=== PATIENT | female | born 2005 | race Caucasian/White ===

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

== ENCOUNTER 2024-12-03 16:36 | Emergency (ER) | payer OTHER, SELFPAY ==
[2024-12-03 17:01] VITALS: BP 137/80; PULSE 93; RESP 18; TEMP 36.3; O2SAT 98; BMI 28.9
[2024-12-03 18:24] VITALS: BP 114/74; PULSE 84; RESP 14; TEMP 36.9; O2SAT 98
[2024-12-03 18:42] LABS: MANUAL DIFF FLAG NO
[2024-12-03 18:43] LABS: Hematocrit 40.4 % (37.0-47.0); Hemoglobin 13.6 g/dl (12.0-16.0); Imm Gran Abs Auto 0.03 X10*3/uL (0.00-0.03); Imm Gran Pct Auto 0.3 % (0.0-0.4); Lymphocytes Absolute Auto 2.3 X10*3/uL (1.2-4.9); Mean Corpuscular HGB Conc 33.7 g/dl (31.0-35.0); Mean Corpuscular Hemoglobin 28.1 pg (27.0-33.0); Mean Corpuscular Volume 83.5 fL (80.0-98.0); NRBC Abs Auto 0.000 X10*3/uL (0.0-0.012); NRBC Pct Auto 0.0 /100WBC (0.0-0.2); Platelet Count 254 X10*3/uL (160-400); Red Blood Count 4.84 X10*6/uL (4.20-5.50); White Blood Count 9.0 X10*3/uL (4.8-10.8)
[2024-12-03 19:06] LABS: Alanine Aminotransferase 9 U/L (0-31); Albumin Level 4.2 g/dL (3.5-5.0); Alkaline Phosphatase 76 U/L (39-117); Anion Gap 11 (12-20); Aspartate Amino Transferase 19 U/L (5-31); Blood Urea Nitrogen 11 mg/dL (9-16); Calcium 9.0 mg/dL (8.4-10.2); Carbon Dioxide 27 mmol/L (22-29); Chloride 108 mmol/L (96-108); Creatinine Clr Calc Pharmacy 119.3; Estimated Glomerular Filt Rate > 60; Lipase 19 U/L (8-78); Magnesium 2.1 mg/dL (1.6-2.6); Potassium 4.1 mmol/L (3.3-5.1); Sodium 142 mmol/L (135-145); Total Protein 7.6 g/dL (6.5-8.0)
[2024-12-03 19:35] LABS: D Dimer High Sensitivity < 150 NG/ML
--- NOTE | 2024-12-03 19:45 | ED_ITS ---
HPI - General Adult General Chief complaint: Abdominal Pain Stated complaint: left side abd discomfort (x few weeks) Time Seen by Provider: 12/03/24 18:35 Source: patient Mode of arrival: ambulatory Limitations: no limitations History of Present Illness ED Provider: MYLES Hawley HPI narrative: This is a 19-year-old female with no reported medical history who presents to the emergency department with complaints of left upper quadrant abdominal pain ongoing for the past3- 4 weeks. Reports it is stabbing in nature when it occurs. She reports it is intermittent in nature she is comfortable right now and does not feel like she needs anything for pain. She denies associated nausea, vomiting, fevers, chills, recent illness, changes in urinary or bowel habits, chest pain, shortness of breath. Denies trauma to the area. No concerns for STDs. No concerns for Related Data Previous Rx's ?Medication ?Instructions ?Recorded erythromycin 5 mg/gram (0.5 %) eye 0.5 inch ophthalmic (eye) QID 7 09/16/20 ointment days #3.5 grams Allergies Allergy/AdvReac Type Severity Reaction Status Date / Time No Known Allergies Allergy Verified 12/03/24 17:04 Review of Systems 2 Review of Systems: Yes all other systems are reviewed and are negative PMFSH Past Medical History Attestation statement: The following information was validated with the patient. Source: old records reviewed and nursing notes reviewed Medical History Childhood asthma Social History Social History Smoked in Last 30 Days: No Substance Use Type: Marijuana Substance Use Frequency: Occasionally Advance Directives: No Advance Directives Information Provided: No Do you have a plan to hurt others: No Plan Patient : No Physical Exam ED Exam Exam: Appearance: Alert.? Oriented X3.? No acute distress.? Head: Normocephalic, atraumatic, no step-offs or deformities Eyes: Pupils equal, round and reactive to light.? ENT: Pharynx normal.? Neck: Normal inspection.? Neck supple.? CVS: Normal heart rate and rhythm.? Pulses normal.? Respiratory: No respiratory distress.? Breath sounds normal.? Abdomen: Soft and + ttp to LUQ very mild and only w/ deep palpation.? Skin: Skin warm and dry.? Normal skin color.? Normal skin turgor.? Extremities: No lower extremity edema.? No calf ttp. 5/5 strength to bilateral upper and lower extremities Neuro: Oriented X 3.? No motor deficit.? No sensory deficit. CN 2-12 intact Vital Signs: Vital Signs - 24 hr 12/03/24 17:01 12/03/24 18:24 12/03/24 20:46 Temperature 97.3 F 98.4 F 98.0 F Pulse Rate 93 84 80 Respiratory Rate 18 14 16 Blood Pressure 137/80 114/74 110/65 Pulse Oximetry 98 98 98 Oxygen Delivery Method Room Air Room Air Room Air BMI result Body Mass Index 28.9 vss Course Reevaluation(s) Reevaluation #1: CBC unremarkable. Chemistry without any acute findings needing intervention. Lipase normal. Beta hCG normal. D-dimer negative unlikely PE. Time: 19:51 Reevaluation #2: Patient's EKG normal sinus rhythm and nondiagnostic for chief complaint. Time: 20:05 Reevaluation #3: Patient feeling okay, she will be discharged home with PCP follow-up she does not have a PCP so will give her a list of PCPs in the area. UA without infection. Educated patient on diagnosis and treatment plan, answered all question, patient verbalizes understanding. At this time patient will be discharged home, advised to return with new or worsening symptoms. Educated on worrisome signs and symptoms and when to return. At this time I feel comfortable discharge home. Time: 21:08 Medical Decision Making Medical Decision Making [facility] Narrative: 1949 19-year-old female presents with 3-4 weeks of left upper quadrant pain. No associated nausea, vomiting, diarrhea or changes in urinary habits Physical exam left upper quadrant tenderness to palpation on exam. History and physical exam concerning for possible musculoskeletal pain. I do not suspect acute appendicitis, cholecystitis, pancreatitis, splenic infarct, diverticulitis or acute abdomen. Will rule out although patient states she does not have a concerned for this. No urinary symptoms unlikely UTI or pyelonephritis. History and physical exam not consistent with ectopic or torsion. I do not suspect pulmonary embolism or atypical presentation of ACS Plan labs, urine, D-dimer Differential Diagnosis Differential Diagnoses: The differential diagnosis associated with the presentation includes (History and physical exam concerning for possible musculoskeletal pain. I do not suspect acute appendicitis, cholecystitis, pancreatitis, splenic infarct, diverticulitis or acute abdomen. Will rule out although patient states she does not have a concerned for this. No urinary symptoms u) Admission/Observation Consideration of admission/observation: Escalation of care including admission/observation considered Lab Data MDM Lab Attestation statement: I reviewed the patient's lab results. 12/03/24 18:33 12/03/24 18:33 Labs: Lab Results 12/03/24 12/03/24 12/03/24 Range/Units 18:33 19:21 20:45 WBC 9.0 (4.8-10.8) X10*3/uL RBC 4.84 (4.20-5.50) X10*6/uL Hgb 13.6 (12.0-16.0) g/dl Hct 40.4 (37.0-47.0) % MCV 83.5 (80.0-98.0) fL MCH 28.1 (27.0-33.0) pg MCHC 33.7 (31.0-35.0) g/dl RDW 12.3 (11.0-16.0) % Plt Count 254 (160-400) X10*3/uL MPV 10.5 (9.4-12.3) fL Immature Gran % (Auto) 0.3 (0.0-0.4) % Neut % (Auto) 66.1 (45-73) % Lymph % (Auto) 25.2 (20-40) % [place] % (Auto) 5.8 (2-11) % Eos % (Auto) 2.0 (0-4) % Baso % (Auto) 0.6 (0-2) % Lymph # (Auto) 2.3 (1.2-4.9) X10*3/uL [place] # (Auto) 0.5 (0.1-1.2) X10*3/uL Eos # (Auto) 0.2 (0.0-0.4) X10*3/uL Baso # (Auto) 0.1 (0.0-0.2) X10*3/uL Abs Immat Gran (auto) 0.03 (0.00-0.03) X10*3/uL Absolute Neuts (auto) 6.0 (2.0-8.3) x10*3/uL Absolute Nucleated RBC 0.000 (0.0-0.012) X10*3/uL Nucleated RBC % (auto) 0.0 (0.0-0.2) /100WBC D-Dimer High Sensitivty < 150 NG/ML Sodium 142 (135-145) mmol/L Potassium 4.1 (3.3-5.1) mmol/L Chloride 108 (96-108) mmol/L Carbon Dioxide 27 (22-29) mmol/L Anion Gap 11 L (12-20) BUN 11 (9-16) mg/dL Creatinine 0.61 (0.5-1.4) mg/dL Estim Creat Clear Calc 119.3 Estimated GFR > 60 Random Glucose 96 (60-115) mg/dL Calcium 9.0 (8.4-10.2) mg/dL Magnesium 2.1 (1.6-2.6) mg/dL Total Bilirubin 0.7 (0.0-1.0) mg/dL AST 19 (5-31) U/L ALT 9 (0-31) U/L Alkaline Phosphatase 76 (39-117) U/L Troponin I High Sens < 2.7 (<3.5-17.0) ng/L Total Protein 7.6 (6.5-8.0) g/dL Albumin 4.2 (3.5-5.0) g/dL Lipase 19 (8-78) U/L Beta HCG, Quant < 2 mIU/mL Urine Color Yellow Urine Appearance Clear Urine pH >= 9.0 (5.0-9.0) Ur Specific [place] 1.020 (1.005-1.025) Urine Protein Trace (Neg-Trace) mg/dL Urine Glucose (UA) Negative (Negative) mg/dL Urine Ketones Negative (Negative) mg/dL Urine Blood Negative (Negative) Urine Nitrite Negative (Negative) Ur Leukocyte Esterase Trace H (Negative) Urine RBC 0-2 (0-2) /HPF Urine WBC 0-5 (0-5) /HPF Ur Squamous Epith Cells 6-10 (0-2) /HPF Urine Bacteria Trace (None Seen) Hyaline Casts 0-2 (0-2) /LPF Independent Interpretation I performed an independent interpretation of an: EKG (Normal sinus rhythm nondiagnostic for chief complaint nonischemic) Tests considered The following testing was considered but not selected: Patient's pain has been present for 3-4 weeks laboratory studies are unremarkable she has mild tenderness to the left upper quadrant, no true indication for CAT scan at this time. She is hemodynamically stable and given follow up with her PCP tomorrow for further evaluation and treatment of left upper quadrant pain that has now been present for 3-4 weeks Chronic Conditions Denies Critical Care Time Critical Care Time Critical Care Time: No Discharge Plan Discharge Clinical Impression: Abdominal pain Patient Disposition: Home, Self-Care Instructions: Abdominal Pain (ED) Additional Instructions: Take your medications as prescribed. If you were prescribed antibiotics today, it is important that you take your medication to their entirety, do not skip any doses, do not finish them early. Follow-up with your primary care provider this week. Return to the emergency department with new or worsening symptoms. Such as fevers, chills, chest pain, shortness of breath, nausea, vomiting, dizziness, headache, vision changes, lethargy In case of emergency call 911 Prescriptions: No Action erythromycin 5 mg/gram (0.5 %) ointment 0.5 inch ophthalmic (eye) QID 7 Days Qty: 3.5 0RF Referrals: Physician,Unknown J [Primary Care Provider, Medical] Print Language: Ecuadorean
--- NOTE | 2024-12-03 19:50 | ECG_ITS ---
Test Reason : LEFT UPPER QUADRANT PAIN Blood Pressure : */* mmHG Vent. Rate : 87 BPM Atrial Rate : 87 BPM P-R Int : 162 ms QRS Dur : 78 ms QT Int : 346 ms P-R-T Axes : 44 50 56 degrees QTcB Int : 416 ms Normal sinus rhythm Normal ECG No previous ECGs available Referred By: Kade Hawley Electronically Signed By: CORBIN PEARSON MD
[2024-12-03 20:33] LABS: Troponin-I High Sensitivity < 2.7 ng/L (<3.5-17.0)
[2024-12-03 20:46] VITALS: BP 110/65; PULSE 80; RESP 16; TEMP 36.7; O2SAT 98
[2024-12-03 20:54] LABS: Appearance Urine Clear; Glucose Urine UA Negative (Negative); PH >= 9.0 (5.0-9.0); Specific Gravity - Urine 1.020 (1.005-1.025); UMIC TRIGGER UACC YES
[2024-12-03 21:36] VITALS: BP 105/75; PULSE 75; RESP 16; TEMP 36.7; O2SAT 98
== END 2024-12-03 21:40 | disposition home or self-care (01) ==
PROVIDERS: Physician Assistant; Emergency Provider Emergency Medicine
DX: R10.12 Left upper quadrant pain (principal)
CPT/HCPCS: 36415; 80053; 81001; 83690; 83735; 84484; 84702; 85025; 85379; 93005; 99283; 99285

== ENCOUNTER → 2024-12-03 19:50 | Outpatient (BNV) | payer OTHER, SELFPAY | PROVIDERS: Emergency Provider Emergency Medicine; Visit Provider Internal Medicine Cardiovascular Disease | DX: R10.12 Left upper quadrant pain (principal) | CPT/HCPCS: 93010 ==

== ENCOUNTER 2025-02-15 15:56 | Outpatient (AMB) | payer OTHER, SELFPAY ==
--- NOTE | 2025-02-15 16:02 | MHC.PC.OV ---
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: No Accompanied by: Self / Same As Patient Is last menstrual period known: Yes Patient : No Allergies No Known Allergies Allergy (Verified 02/15/25 16:02) Medication List - Last Reconciled 02/15/25 by Emiliano Padron MD Tobacco use date assessed: 02/15/25 Dental Screening Dental Screen Date: 02/15/25 Did you have a dental visit in the last 12 months?: Yes Was dental information given to patient?: Patient has dentist HPI HPI Comments History of Present Illness Details History of Present Illness The patient is a 19 year old female presenting for a new patient visit, a physical, and to address concerns of abdominal discomfort and hair loss. The primary concern is abdominal discomfort, which prompted a recent emergency room visit. The sensation initially began on the left side of her stomach some time ago and shifted to the right side a few weeks ago. She describes it not as painful but as a weird, cramping sensation that comes and goes randomly, is not associated with her menstrual cycle, and resolves on its own, particularly with rest. She has not identified any specific triggers, such as food or falls. She reports occasional constipation and notes the discomfort may be worse during these episodes. Blood work and urine tests from the recent ER visit were normal. The patient also reports experiencing significant hair loss for the past year, which occurs diffusely rather than in patches. She previously dyed her hair frequently and stopped a year ago, believing it to be the cause, but the hair loss has not improved. Past medical history is significant for fatty liver, diagnosed in 2021 via an ultrasound at [facility], and anxiety. This is her first visit with an adult primary care physician, having previously been with a research assistant member. Medical History: - Steatosis of liver: Diagnosed in 2021 via ultrasound. - Anxiety: Patient scored 14 on a screening, indicating significant anxiety, particularly related to her health. - Emergency Department Visit: Recently visited the ED for abdominal pain, where blood work and urinalysis were found to be normal. Surgical History: - No prior surgeries. Medications: - The patient denies taking any medications. Family History: - Diabetes: Mother and maternal grandmother. - Denies family history of cancer or heart disease. Diagnostic Results: - Labs: Blood work from a recent emergency department visit was normal. - Tests: Urinalysis from a recent emergency department visit was normal. - Diagnostics: An ultrasound in 2021 diagnosed fatty liver. 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 - Housing: Lives with her mother in a house. - Tobacco Use: Denies ever using tobacco, e-cigarettes, or vaping. - Environmental Exposures: Reports some secondhand tobacco smoke exposure. - Alcohol Use: Denies any alcohol consumption. - Substance Use: Reports occasional marijuana use. 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 1. Little interest or pleasure in doing things: not at all 2. Feeling down, depressed, or hopeless: not at all 3. Trouble falling or staying asleep, or sleeping too much: not at all 4. Feeling tired or having little energy: not at all 5. Poor appetite or overeating: not at all 6. Feeling bad about yourself - or that you are a failure or have let yourself or your family down: not at all 7. Trouble concentrating on things, such as reading the newspaper or watching television: not at all 8. Moving or speaking so slowly that other people could have noticed. Or the opposite - being so fidgety or restless that you have been moving around a lot more than usual: not at all 9. Thoughts that you would be better off or of hurting yourself in some way: not at all Total score: 0 Depression Screening Interpretation: Negative Depression Screening Done: Yes 86012 - PHQ-9 Billing: Yes Source: Developed by Drs. Chavo Evans, Goyo Guevara and colleagues, with an educational phillip from [employer]. Thrive Questionnaire Date Thrive assessed: 02/15/25 I am a: Patient What is your living situation today?: I have a steady place to live Within the past 12 months, did the food you bought not last and you didn't have the money to get more?: Never true Within the past 12 months, did you worry whether your food would run out before you got money to buy more?: Never true Do you have trouble paying for medicines?: No Do you have trouble getting transportation to medical appointments?: No Do you have trouble paying your heating and electricity bill?: No Do you have trouble taking care of your child, family member or friend?: No Do you have trouble with day-to-day activities such as bathing, preparing meals, shopping, managing finances, etc.?: No Are you currently unemployed and looking for a job?: No Are you interested in more education?: No THRIVE Score: 0 AUDIT C Alcohol Use Questionnaire (AUDIT-C) 1. How often do you have a drink containing alcohol?: Never Total Score: 0 Score Reviewed/Action Taken: Yes ZEESHAN-7 AMB Questionnaire ZEESHAN-7 Date ZEESHAN - 7 assessed: 02/15/25 Feeling nervous, anxious, or on edge: 2 = More than half the days Not being able to stop or control worryin = More than half the days Worrying too much about different things: 2 = More than half the days Trouble relaxin = More than half the days Being so restless that it is hard to sit still: 2 = More than half the days Becoming easily annoyed or irritable: 2 = More than half the days Feeling afraid as if something awful might happen: 2 = More than half the days Total ZEESHAN-7 score (0-4 normal; 5-9 mild; 10-14 moderate; 15-21 severe): 14 Source: Developed by Drs. Chavo Evans, Goyo Guevara and colleagues, with an educational phillip from [employer]. ZEESHAN-7 Assessment Billing ZEESHAN-7 Assessment Tool: ZEESHAN-7 Assessment 10338 Review of Systems Narrative - General: Denies significant weight loss. - Gynecologic: Reports last menstrual period started today. - Gastrointestinal: Reports intermittent abdominal cramping and occasional constipation. - Denies bloody stools. - Integumentary: Reports diffuse hair loss for approximately one year. - Denies skin lesions. - Psychiatric: Reports anxiety, particularly focused on her health. - Immune: Denies frequent infections. All systems reviewed & are unremarkable except as reviewed in HPI and above Physical exam (Primary Care) Vital Signs: Last Vital Signs Temp 98.1 F 02/15/25 16:04 Pulse 99 02/15/25 16:04 Resp 16 02/15/25 16:04 BP 138/92 H 02/15/25 16:04 Pulse Ox 99 02/15/25 16:04 BMI result Body Mass Index 31.0 Tobacco/Smoking Status: Tobacco use Status Tobacco use date assessed 02/15/25 02/15/25 16:06 Patient Tobacco Use Status Never used Tobacco 02/15/25 16:06 e-Cigarette/Vaping Use Never Used 02/15/25 16:06 PHQ-9: PHQ-9 Score PHQ-9: Total score 0 02/15/25 16:07 Depression Screening Interpretation: Negative Thrive Assessment: Date of Thrive Assessment Date Thrive assessed 02/15/25 02/15/25 16:07 Narrative Physical Exam General: +Alert and oriented, Well nourished, No acute distress. Eye: Pupils are equal, round and reactive to light, Intact accommodation, Extraocular movements are intact, Normal conjunctiva, Vision unchanged. HENT: Normocephalic, Atraumatic, Tympanic membranes are clear, Normal hearing, Oral mucosa is moist, No pharyngeal erythema, Ear canals patent. Respiratory: Lungs CTA bilaterally, No wheeze, Respirations are non-labored. Cardiovascular: Regular rate, Regular rhythm, S1 auscultated, S2 auscultated, No murmur, Good pulses equal in all extremities, Normal peripheral perfusion, No edema. Gastrointestinal: Soft, Non-tender, Non-distended, Normal bowel sounds, No organomegaly, Occasional constipation. Musculoskeletal: Normal range of motion, Normal strength, No tenderness, No swelling, No deformity, Normal gait. Integumentary: Warm, Dry, [place], Intact, Experiencing hair loss. Neurologic: Alert, Oriented, Normal sensory, Normal motor function, No focal defects, Cranial Nerves II-XII are grossly intact, Normal deep tendon reflexes. Psychiatric: Cooperative, Appropriate mood & affect, Normal judgment, Significant anxiety (scored 14). Coding Level of Care Code New Pt Level 3 (77510) New Pt Prev Care 18-39yr(81927 Diagnoses Generalized abdominal pain R10.84 Abdominal location: generalized Anxiety F41.9 Hair loss L65.9 Annual physical exam Z00.00 Additional Codes ZEESHAN-7 Assessment Billing - ZEESHAN-7 Assessment Tool: ZEESHAN-7 Assessment 32116 ([id number]) PHQ-9 - 13416 - PHQ-9 Billing: Yes ([id number]) Comment [id number] Assessment & Plan Assessment & Plan (1) Abdominal pain: Comment: - The etiology of the patient's intermittent, migrating abdominal cramping is unclear, though it may be related to constipation. - Given the normal physical exam and recent normal labs from the ER, an urgent process is less likely. - Plan includes an abdominal x-ray to assess for stool burden and an abdominal ultrasound to evaluate internal organs. - The patient was instructed to keep a symptom diary to track potential associations. Code(s): R10.9 - Unspecified abdominal pain Category: Medical Qualifiers: Abdominal location: generalized Qualified Code(s): R10.84 - Generalized abdominal pain (2) Anxiety: Comment: - The patient has significant anxiety, as indicated by a screening score of 14, which she identifies as being primarily related to her health. - This may be contributing to her hair loss. - Treatment with medication was discussed, but the patient wished to think about it. - Reassurance was provided regarding her normal lab results. Code(s): F41.9 - Anxiety disorder, unspecified Category: Medical (3) Hair loss: Comment: - The patient reports diffuse hair loss for one year, which has not improved after stopping hair dye. - Stress and anxiety are the most likely contributing factors. - Cacf-kzk-qexurip minoxidil spray was suggested. Code(s): L65.9 - Nonscarring hair loss, unspecified Category: Medical (4) Annual physical exam: Comment: - As this is a new patient physical, screening labs were ordered, including a lipid panel, hepatitis panel, HIV, syphilis, vitamin D, and TSH. - A urinalysis will also be performed. - Follow-up is scheduled in three weeks to review results and reassess symptoms. Code(s): Z00.00 - Encounter for general adult medical examination without abnormal findings Category: Medical Plan: Health Maintenance: - Patient is establishing care with an adult primary care physician for the first time. - Screening labs ordered: lipid panel, hepatitis panel, HIV, syphilis, vitamin D, TSH, and urinalysis. - Counseled on substance use; patient denies alcohol and tobacco use but reports occasional marijuana use. - Patient confirmed she has seen a dentist in the past 12 months. Patient was informed and verbally consented to the use of an ambient scribe for clinic note documentation during this visit. Vital signs reviewed. Comprehensive history, review of systems, and physical exam completed. Medications, allergies, and problem list reviewed and updated. Counseling provided on nutrition, regular exercise, sleep hygiene, and moderation of alcohol use. Discussed age-appropriate screenings (mammogram, colonoscopy, Pap, bone density) and immunizations (flu, COVID, shingles, Tdap). Screened for depression, fall risk, and home safety; no current concerns. Discussed stress management, dental and vision care, and importance of ongoing preventive follow-up. Routine labs ordered for metabolic and lipid screening. Patient educated on healthy lifestyle and agrees with the plan. Plan I discussed with the patient that the cause of her abdominal pain is not clear at this time, but her recent emergency room workup and today's physical exam are reassuring. I explained the plan to get an abdominal x-ray and ultrasound for further evaluation and stressed the importance of keeping a symptom diary to identify potential triggers. We discussed her significant health anxiety and that it is likely a major contributor to her symptoms, including her hair loss. I offered medication for her anxiety, but she preferred to think about it, which I agreed to. I recommended she try [id number]-[id number] minoxidil for her hair. I ordered a panel of screening labs as part of her new patient physical and explained that I would notify her of any abnormal results. I advised her to return to the emergency room for severe pain and to follow up with me in three weeks. Orders: Orders US abdomen complete Today R10.9 - Unspecified abdominal pain Hemoglobin A1c Today Z00.00 - Encounter for general adult medical examination without abnormal findings Hepatitis A,B,C Profile Today Z00.00 - Encounter for general adult medical examination without abnormal findings HIV Ab/Ag Today Z00.00 - Encounter for general adult medical examination without abnormal findings Lipid Panel Today Z00.00 - Encounter for general adult medical examination without abnormal findings Microalbumin, Random (w Creat) Today Z00.00 - Encounter for general adult medical examination without abnormal findings Syphilis Screen Today Z00.00 - Encounter for general adult medical examination without abnormal findings TSH reflex Free T4 Today Z00.00 - Encounter for general adult medical examination without abnormal findings XR abdomen 1V Today R10.9 - Unspecified abdominal pain Vitamin D 25-OH Total Today Z00.00 - Encounter for general adult medical examination without abnormal findings Patient Instructions: - Go to the hospital imaging department today to get an x-ray of your abdomen. - The radiology department will call you to schedule an ultrasound of your abdomen. - Keep a daily diary of your symptoms. - Write down what you ate, if you had a bowel movement, and when the discomfort occurs. - For your hair loss, you can try an vfuw-gyj-lzmensx spray called minoxidil. - We discussed medication for anxiety, please think about if this is something you would be interested in trying. - Schedule a follow-up appointment in three weeks. - If you experience severe pain, please go to the emergency room for evaluation.
[2025-02-15 16:04] VITALS: BP 138/92; PULSE 99; RESP 16; TEMP 36.7; O2SAT 99; BMI 31.0
--- OUTSIDE RECORDS SUMMARY | 2025-02-15 18:42 | XMS_ITS | Encounter Summary ---
Author Organization [facility] Address [address] [place] [id number] Phone Care Team Providers Care Loan Review Analyst Name Role Phone Mariajose Guidry MD Primary Care Provider [phone] Encounter Details Date Type Department Care Team ([facility] st Contact Info) Description 10/11/2016 Conversion Encounter [facility] [address] [place] [address] Social History Tobacco Use Types Packs/Day Years Used Date Smoking Tobacco: Never Assessed Comments Unknown Sex and Gender Information Value Date Recorded Sex Assigned at Female 12/29/2020 11:08 AM EDT Legal Sex Female 5:11 PM EDT Gender Identity Female 12/29/2020 11:08 AM EDT Sexual Orientation Straight 12/29/2020 11 :08 AM EDT documented as of this encounter Plan of Treatment Not on file documented as of this encounter Visit Diagnoses Not on filedocumented in this encounter Care Teams Loan Review Analyst Relationship Specialty Start Date End Date Mariajose Guidry MD [address] [place] [address] PCP - General 10/05/16 03/08/24 documented as of this encounter
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
== END 2025-02-15 16:18 | disposition home or self-care (01) ==
LOC: HO.HMCHD 15:57
PROVIDERS: Visit Provider Student in an Organized Health Care Education/Training Program
DX: R10.84 Generalized abdominal pain (principal); F41.9 Anxiety disorder, unspecified; L65.9 Nonscarring hair loss, unspecified

== ENCOUNTER 2025-02-15 15:56 | Outpatient (REF) | payer OTHER, SELFPAY ==
--- NOTE | ~2025-02-15 | XR_ITS ---
EXAMINATION: XR ABDOMEN 1 VIEW (KUB) HISTORY: R10.9 - Unspecified abdominal pain COMPARISON: There are no prior studies available for comparison. FINDINGS: Two supine views of the abdomen are submitted. The bowel gas pattern is unremarkable, without evidence of mechanical obstruction. There is a moderate amount of stool throughout the colon. No abnormal calcifications are identified. There are no abnormal soft tissue masses. The bones are intact. XR/XR abdomen 1V IMPRESSION: Moderate amount of stool throughout the colon. Electronically signed by: Chavo Johnson MD 02/16/2025 07:21 AM JOY
[2025-02-15 17:54] LABS: Cholesterol 110 mg/dL (<200); HDL Cholesterol 35 mg/dL (>40); Triglycerides 99 mg/dL (<150)
[2025-02-16 03:48] LABS: Syphilis Screen Nonreactive (Nonreactive)
[2025-02-16 04:22] LABS: HBS Num1 0.19 mIU/mL (0-7.99); HBc Num1 0.13 S/CO (0.00-0.79); HBsAGNum1 0.35 S/CO (0.00-0.99); HIV Num 1 0.08 S/CO (0.00-0.99); Hepatitis A Antibody IgM 0.39 Index (0-0.79); Hepatitis B Surface Antigen Negative (Negative); ~HepC Num1 0.19 S/CO (0.00-0.79); ~Hepatitis A Antibody IgM Nonreactive (Nonreactive); ~Hepatitis B Surface Antibody NONREACTIVE (Nonreactive); ~Hepatitis C Antibody Nonreactive (Nonreactive)
== END 2025-02-15 15:57 | disposition home or self-care (01) ==
LOC: HO.LAB 15:56
PROVIDERS: Visit Provider Student in an Organized Health Care Education/Training Program
DX: Z00.00 Encounter for general adult medical examination without abnormal findings (principal); L65.9 Nonscarring hair loss, unspecified; K76.0 Fatty (change of) liver, not elsewhere classified; R10.84 Generalized abdominal pain; F41.9 Anxiety disorder, unspecified
CPT/HCPCS: 36415; 74018; 80061; 82306; 82570; 83036; 84443; 86704; 86706; 86709; 86780; 86803; 87340; 87389; 96127; 99202

== ENCOUNTER → 2025-02-15 16:43 | Outpatient (BNV) | payer OTHER, SELFPAY | PROVIDERS: Visit Provider Radiology Diagnostic Radiology | DX: R10.9 Unspecified abdominal pain (principal) | CPT/HCPCS: 74018 ==